=== PATIENT | female | born 1955 | race Hispanic/Latino ===

== ENCOUNTER 2020-11-02 06:49 | Observation (INO) | payer BC ==
[2020-11-02 08:17] LABS: #Basophils 0.1 10x3/uL (0.0-0.2); #Eosinphils 0.2 10x3/uL (0.0-0.5); #Monocytes 0.3 10x3/uL (0.0-1.1); #Neutrophils 2.4 10x3/uL (1.5-8.4); %Basophils 1.1 % (0.0-2.0); %Eosinophils 4.3 % (0.0-6.0); %Lymphocytes 35.4 % (18.0-47.0); %Monocytes 6.3 % (0.0-10.0); %Neutrophils 52.5 % (40.0-75.0); Hemoglobin 12.3 g/dL (12.0-15.5); Mean Corpuscular HGB CONC 33.8 g/dL (32.0-36.0); Mean Corpuscular Hemoglobin 31.9 pg (27.0-33.0); Mean Corpuscular Volume 94.5 fl (81.6-98.3); Mean Platelet Volume 9.9 fl (7.4-10.4); Platelet Count 232 10x3/uL (150-450); RBC Distribution Width 12.6 % (11.5-14.5); Red Blood Cell (RBC) Count 3.85 10x6/uL (3.90-5.03); White Blood Cell (WBC) Count 4.6 10x3/uL (3.5-10.5)
[2020-11-02 08:34] LABS: ALT (SGPT) 23 U/L (8-55); AST (SGOT) 35 U/L (5-34); Albumin 3.7 g/dL (3.4-4.8); Alkaline Phosphatase 69 U/L (40-110); Anion Gap 13 mmol/L (10-20); BUN (Urea Nitrogen) 14 mg/dL (9.8-20.1); Calc. Creatinine Clearance 0 mL/min (70-130); Calcium 8.4 mg/dL (7.8-10.44); Carbon Dioxide 26 mmol/L (23-31); Chloride 105 mmol/L (98-107); Globulin 2.9 g/dL (2.4-3.5); Glucose 103 mg/dL (80-115); Potassium 4.3 mmol/L (3.5-5.1); Protein, Total 6.6 g/dL (5.8-8.1); Sodium 140 mmol/L (136-145)
[2020-11-02] MEDS ORDERED: HYDROcodone/Acetaminophen 5/325 mg Tablet PO PRN (11:02)
[2020-11-02] MEDS ORDERED: Guaifenesin DM 100-10/5 ML UDCUP PO PRN (11:02)
[2020-11-02] MEDS ORDERED: Bisacodyl 10 MG SUPP PR PRN (11:02)
[2020-11-02] MEDS ORDERED: Acetaminophen 325 MG TAB PO PRN (11:02)
[2020-11-02] MEDS ORDERED: Loperamide HCl 2 MG CAP PO PRN (11:02)
[2020-11-02] MEDS ORDERED: Senokot S 8.6-50 MG TAB PO PRN (11:02)
[2020-11-02] MEDS ORDERED: Ondansetron ODT 4 MG TAB PO PRN (11:02)
[2020-11-02] MEDS ORDERED: Zolpidem Tartrate 5 MG TAB PO PRN (11:02)
[2020-11-02] MEDS ORDERED: Calcium Carbonate 500 MG ChewTAB PO PRN (11:02)
[2020-11-02] MEDS ORDERED: Ondansetron PF 4 MG/2 ML Vial IVP PRN (11:02)
[2020-11-02] MEDS ORDERED: Lorazepam 2 MG/ML VIAL SLOW IVP SCH (11:15)
[2020-11-02 11:18] LABS: Troponin I Less than 0.010 ng/mL (< 0.028)
[2020-11-02 14:13] LABS: Troponin I Less than 0.010 ng/mL (< 0.028)
[2020-11-02] MEDS ORDERED: Lorazepam 2 MG/ML VIAL ONE (15:56)
[2020-11-02 18:30] VITALS: BMI 44.1
[2020-11-02] MEDS: Famotidine 20 MG TAB PO SCH (20:19)
[2020-11-03 06:26] LABS: Cardiac Risk 4.9 (Less than 4.5)
[2020-11-03] MEDS: Famotidine 20 MG TAB PO SCH (08:35)
[2020-11-03] MEDS ORDERED: FLU VACC QS2020-21(65YR UP)/PF 240 MCG/0.7 ML SYRINGE IM ONE (09:00)
[2020-11-03 11:31] LABS: Hemoglobin A1c 5.7 % (4.0-6.0)
[2020-11-03 12:08] VITALS: BP 127/79; TEMP 97.4
== END 2020-11-03 15:16 | disposition home or self-care (01) ==
LOC: CSHERS 06:49 → CSHERHOLD 10:20 → CSHTELE 17:23
PROVIDERS: ADMIT Internal Medicine; ATTEND Family Medicine
DX: R55 Syncope and collapse (principal); E11.9 Type 2 diabetes mellitus without complications; E66.01 Morbid (severe) obesity due to excess calories; Z79.899 Other long term (current) drug therapy; Z90.710 Acquired absence of both cervix and uterus; Z90.49 Acquired absence of other specified parts of digestive tract; F32.9 Major depressive disorder, single episode, unspecified; Z87.891 Personal history of nicotine dependence; E78.5 Hyperlipidemia, unspecified; F41.9 Anxiety disorder, unspecified
CPT/HCPCS: 36415; 70450; 70551; 71045; 80053; 80061; 83036; 83880; 84443; 84484; 85025; 90471; 90662; 93005; 93306; 93880; 96374; G0008; G0378; J2060

== ENCOUNTER 2021-12-10 11:00 | Emergency (ER) | payer MEDICARE, BC ==
[2021-12-10 12:35] LABS: #Basophils 0.1 10x3/uL (0.0-0.2); #Eosinphils 0.2 10x3/uL (0.0-0.5); #Monocytes 0.3 10x3/uL (0.0-1.1); #Neutrophils 2.1 10x3/uL (1.5-8.4); %Basophils 1.4 % (0.0-2.0); %Eosinophils 4.6 % (0.0-6.0); %Neutrophils 47.8 % (40.0-75.0); Mean Corpuscular HGB CONC 33.9 g/dL (32.0-36.0); Mean Corpuscular Hemoglobin 31.3 pg (27.0-33.0); Mean Corpuscular Volume 92.1 fl (81.6-98.3); Mean Platelet Volume 9.2 fl (7.4-10.4); Platelet Count 296 10x3/uL (150-450); RBC Distribution Width 12.2 % (11.5-14.5); Red Blood Cell (RBC) Count 4.16 10x6/uL (3.90-5.03); White Blood Cell (WBC) Count 4.4 10x3/uL (3.5-10.5)
[2021-12-10] MEDS ORDERED: Ketorolac Tromethamine 30 MG/ML VIAL ONE (12:39)
[2021-12-10] MEDS ORDERED: Acetaminophen 500 MG TAB ONE (12:39)
[2021-12-10 12:52] LABS: ALT (SGPT) 17 U/L (8-55); AST (SGOT) 31 U/L (5-34); Albumin 4.1 g/dL (3.4-4.8); Alkaline Phosphatase 68 U/L (40-110); Anion Gap 13 mmol/L (10-20); BUN (Urea Nitrogen) 10 mg/dL (9.8-20.1); Bilirubin, Total 1.7 mg/dL (0.2-1.2); Calc. Creatinine Clearance 0 mL/min (70-130); Calcium 9.6 mg/dL (7.8-10.44); Carbon Dioxide 28 mmol/L (23-31); Chloride 102 mmol/L (98-107); Glucose 108 mg/dL (80-115); Potassium 4.6 mmol/L (3.5-5.1); Protein, Total 7.1 g/dL (5.8-8.1); Sodium 138 mmol/L (136-145)
[2021-12-10 14:06] LABS: Bilirubin Neg (Negative); Blood, Urine 25 (Negative); Clarity Cloudy (Clear); Glucose, Urine (Dipstick) Normal (Negative); Ketone, Urine 5 mg/dL (Negative); Leukocyte 500 (Negative); Nitrite Positive (Negative); Protein, Urine (Dipstick) 15 mg/dl (Neg-Trace); Specific Gravity, Urine 1.025 (1.002-1.036); Urobilinogen Normal mg/dL (Less than 2)
[2021-12-10 14:21] LABS: Bacteria/HPF 4+ HPF (None Seen); RBC/HPF 0-3 HPF (0-3); Squamous Epithelial 0-3 HPF (0-3); WBC/HPF Greater Than 50 HPF (0-3)
== END 2021-12-10 14:55 | disposition home or self-care (01) ==
LOC: CSHERS 11:00
DX: N39.0 Urinary tract infection, site not specified (principal); R51.9 Headache, unspecified; R06.02 Shortness of breath
CPT/HCPCS: 71045; 80053; 81003; 81015; 83880; 84484; 85025; 87077; 87086; 87186; 93005; 96374; J1885

== ENCOUNTER 2022-01-06 14:28 | Inpatient (IN) | payer MEDICARE, BC ==
[2022-01-06 15:38] LABS: #Eosinphils 0.2 10x3/uL (0.0-0.5); #Monocytes 0.4 10x3/uL (0.0-1.1); #Neutrophils 6.3 10x3/uL (1.5-8.4); %Basophils 0.5 % (0.0-2.0); %Eosinophils 2.6 % (0.0-6.0); %Lymphocytes 13.5 % (18.0-47.0); %Monocytes 4.5 % (0.0-10.0); %Neutrophils 78.5 % (40.0-75.0); Hemoglobin 12.6 g/dL (12.0-15.5); Mean Corpuscular HGB CONC 36.2 g/dL (32.0-36.0); Mean Corpuscular Hemoglobin 31.4 pg (27.0-33.0); Mean Corpuscular Volume 86.8 fl (81.6-98.3); Mean Platelet Volume 8.8 fl (7.4-10.4); Platelet Count 275 10x3/uL (150-450); RBC Distribution Width 11.7 % (11.5-14.5); Red Blood Cell (RBC) Count 4.01 10x6/uL (3.90-5.03)
[2022-01-06 15:49] LABS: Bilirubin Neg (Negative); Blood, Urine 25 (Negative); Glucose, Urine (Dipstick) Normal (Negative); Ketone, Urine 5 mg/dL (Negative); Leukocyte 500 (Negative); Nitrite Positive (Negative); Protein, Urine (Dipstick) 15 mg/dl (Neg-Trace)
[2022-01-06 15:52] LABS: ALT (SGPT) 18 U/L (8-55); AST (SGOT) 54 U/L (5-34); Albumin 4.1 g/dL (3.4-4.8); Alkaline Phosphatase 68 U/L (40-110); Anion Gap 15 mmol/L (10-20); BUN (Urea Nitrogen) 10 mg/dL (9.8-20.1); Bilirubin, Total 2.9 mg/dL (0.2-1.2); Calc. Creatinine Clearance 0 mL/min (70-130); Calcium 9.2 mg/dL (7.8-10.44); Carbon Dioxide 23 mmol/L (23-31); Chloride 89 mmol/L (98-107); Glucose 101 mg/dL (80-115); Potassium 3.7 mmol/L (3.5-5.1); Protein, Total 7.1 g/dL (5.8-8.1); Sodium 123 mmol/L (136-145)
[2022-01-06] MEDS ORDERED: Ondansetron PF 4 MG/2 ML Vial ONE (15:57)
[2022-01-06 16:07] LABS: Bacteria/HPF 4+ HPF (None Seen); Clarity Turbid (Clear); RBC/HPF 0-3 HPF (0-3)
[2022-01-06] MEDS ORDERED: cefTRIAXone\\ROCEPHIN 1 GM VIAL ONE (16:33)
[2022-01-06] MEDS ORDERED: Acetaminophen 500 MG TAB ONE (16:50)
[2022-01-06] MEDS ORDERED: Magnesium Oxide 400 MG TAB PO SCH (20:00)
[2022-01-06] MEDS ORDERED: Ondansetron ODT 4 MG TAB PO PRN (21:37)
[2022-01-06] MEDS ORDERED: Ondansetron PF 4 MG/2 ML Vial IVP PRN (21:37)
[2022-01-06] MEDS ORDERED: traMADol HCl 50 MG TAB PO PRN (21:45)
[2022-01-06] MEDS ORDERED: Potassium Chloride 20 MEQ in Premix Bag 1 BAG IVPB SCH (22:00)
[2022-01-06 22:05] VITALS: BMI 44.6
[2022-01-06] MEDS: Sodium Chloride 0.9% 1,000 ML IV SCH (22:52)
[2022-01-06 22:54] LABS: Anion Gap 14 mmol/L (10-20); BUN (Urea Nitrogen) 10 mg/dL (9.8-20.1); Calc. Creatinine Clearance 128 mL/min (70-130); Carbon Dioxide 24 mmol/L (23-31); Chloride 89 mmol/L (98-107); Glucose 98 mg/dL (80-115); Magnesium 1.9 mg/dL (1.6-2.6); Potassium 4.2 mmol/L (3.5-5.1); Sodium 123 mmol/L (136-145)
[2022-01-06] MEDS: HYDROcodone/Acetaminophen 5/325 mg Tablet PO PRN (23:33)
[2022-01-07 04:44] LABS: #Eosinphils 0.3 10x3/uL (0.0-0.5); #Monocytes 0.3 10x3/uL (0.0-1.1); %Basophils 0.8 % (0.0-2.0); %Eosinophils 5.3 % (0.0-6.0); %Lymphocytes 27.6 % (18.0-47.0); %Monocytes 6.1 % (0.0-10.0); %Neutrophils 59.8 % (40.0-75.0); Hemoglobin 12.7 g/dL (12.0-15.5); Mean Corpuscular HGB CONC 36.7 g/dL (32.0-36.0); Mean Corpuscular Hemoglobin 31.8 pg (27.0-33.0); Mean Corpuscular Volume 86.7 fl (81.6-98.3); Mean Platelet Volume 8.7 fl (7.4-10.4); Platelet Count 257 10x3/uL (150-450); RBC Distribution Width 11.8 % (11.5-14.5); Red Blood Cell (RBC) Count 3.99 10x6/uL (3.90-5.03); White Blood Cell (WBC) Count 5.1 10x3/uL (3.5-10.5)
[2022-01-07 04:52] LABS: Anion Gap 13 mmol/L (10-20); BUN (Urea Nitrogen) 9 mg/dL (9.8-20.1); Calc. Creatinine Clearance 128 mL/min (70-130); Calcium 9.1 mg/dL (7.8-10.44); Carbon Dioxide 24 mmol/L (23-31); Chloride 92 mmol/L (98-107); Glucose 99 mg/dL (80-115); Sodium 125 mmol/L (136-145)
[2022-01-07 08:43] LABS: ALT (SGPT) 19 U/L (8-55); AST (SGOT) 78 U/L (5-34); Albumin 4.1 g/dL (3.4-4.8); Alkaline Phosphatase 68 U/L (40-110); Bilirubin, Direct 0.8 mg/dL (0.1-0.3); Bilirubin, Total 2.6 mg/dL (0.2-1.2); Protein, Total 7.2 g/dL (5.8-8.1)
[2022-01-07] MEDS ORDERED: traMADol HCl 50 MG TAB PO PRN (08:58)
[2022-01-07] MEDS ORDERED: Furosemide 20 MG TAB PO SCH (09:00)
[2022-01-07] MEDS ORDERED: DULoxetine 30 MG CAP PO SCH (09:00)
[2022-01-07] MEDS: Gabapentin 300 MG CAP PO SCH ×5 (10:49→21:20)
[2022-01-07] MEDS: Aspirin Chewable 81 MG TAB PO SCH (10:49)
[2022-01-07] MEDS: Enoxaparin Sodium 40 MG/0.4 ML SYRINGE SC SCH (10:50)
[2022-01-07 11:47] LABS: Anion Gap 11 mmol/L (10-20); BUN (Urea Nitrogen) 8 mg/dL (9.8-20.1); Calc. Creatinine Clearance 123 mL/min (70-130); Carbon Dioxide 26 mmol/L (23-31); Chloride 94 mmol/L (98-107); Glucose 95 mg/dL (80-115); Potassium 3.8 mmol/L (3.5-5.1); Sodium 127 mmol/L (136-145)
[2022-01-07 14:38] LABS: Amphetamine Not Detected (NotDetected); Barbiturates Screen Not Detected (NotDetected); Benzodiazepine Screen Not Detected (NotDetected); Cocaine Metabolite Screen Not Detected (NotDetected); Methadone Not Detected (NotDetected); Methamphetamine Not Detected (NotDetected); Opiate Screen Not Detected (NotDetected); Oxycodone Screen Not Detected (NotDetected); Phencyclidine (PCP) Not Detected (NotDetected); THC/Cannabinoid Screen Not Detected (NotDetected); Tricyclic Screen Not Detected (NotDetected)
[2022-01-07] MEDS: Sodium Chloride 0.9% 1,000 ML IV SCH ×4 (16:16→21:21)
[2022-01-07 20:16] LABS: Anion Gap 13 mmol/L (10-20); BUN (Urea Nitrogen) 7 mg/dL (9.8-20.1); CK (CPK) 1804 U/L (29-168); Calc. Creatinine Clearance 125 mL/min (70-130); Calcium 8.6 mg/dL (7.8-10.44); Carbon Dioxide 22 mmol/L (23-31); Chloride 97 mmol/L (98-107); Glucose 101 mg/dL (80-115); Potassium 3.6 mmol/L (3.5-5.1); Sodium 128 mmol/L (136-145)
[2022-01-07] MEDS: HYDROcodone/Acetaminophen 5/325 mg Tablet PO PRN (21:20)
[2022-01-08] MEDS: Sodium Chloride 0.9% 1,000 ML IV SCH ×2 (02:22→08:27)
[2022-01-08 04:54] LABS: ALT (SGPT) 18 U/L (8-55); AST (SGOT) 61 U/L (5-34); Albumin 3.5 g/dL (3.4-4.8); Alkaline Phosphatase 67 U/L (40-110); Anion Gap 12 mmol/L (10-20); BUN (Urea Nitrogen) 7 mg/dL (9.8-20.1); Bilirubin, Total 1.6 mg/dL (0.2-1.2); CK (CPK) 1518 U/L (29-168); Calc. Creatinine Clearance 127 mL/min (70-130); Calcium 8.5 mg/dL (7.8-10.44); Carbon Dioxide 25 mmol/L (23-31); Chloride 102 mmol/L (98-107); Glucose 98 mg/dL (80-115); Potassium 4.2 mmol/L (3.5-5.1); Protein, Total 6.5 g/dL (5.8-8.1); Sodium 135 mmol/L (136-145)
[2022-01-08 08:25] VITALS: TEMP 97.3
[2022-01-08] MEDS: Gabapentin 300 MG CAP PO SCH (08:50)
[2022-01-08] MEDS: Aspirin Chewable 81 MG TAB PO SCH (08:50)
[2022-01-08] MEDS: Enoxaparin Sodium 40 MG/0.4 ML SYRINGE SC SCH (08:50)
[2022-01-08] MEDS ORDERED: DULoxetine 30 MG CAP PO SCH (09:00)
[2022-01-08] MEDS ORDERED: Sodium Chloride 0.9% 1,000 ML IV SCH (11:09)
[2022-01-08] MEDS ORDERED: Acetaminophen 325 MG TAB PO PRN (12:20)
[2022-01-08 12:41] VITALS: BP 127/60
== END 2022-01-08 14:38 | disposition home or self-care (01) | DRG 923 ==
LOC: CSHERS 14:28 → INTOOBSV 21:48 → CSHTELE 21:48 → OBSVTOIN 21:49
PROVIDERS: ADMIT Internal Medicine; ATTEND Internal Medicine
DX: T67.5XXA Heat exhaustion, unspecified, initial encounter (principal); E87.1 Hypo-osmolality and hyponatremia; M62.82 Rhabdomyolysis; N39.0 Urinary tract infection, site not specified; Z68.42 Body mass index [BMI] 45.0-49.9, adult; M79.7 Fibromyalgia; G43.909 Migraine, unspecified, not intractable, without status migrainosus; E66.9 Obesity, unspecified; E11.42 Type 2 diabetes mellitus with diabetic polyneuropathy; E86.0 Dehydration; R10.32 Left lower quadrant pain; E86.9 Volume depletion, unspecified; F19.10 Other psychoactive substance abuse, uncomplicated; T50.995A Adverse effect of other drugs, medicaments and biological substances, initial encounter; E80.6 Other disorders of bilirubin metabolism; M19.90 Unspecified osteoarthritis, unspecified site; F10.10 Alcohol abuse, uncomplicated; F32.A Depression, unspecified; Z20.822 Contact with and (suspected) exposure to COVID-19; Z91.09 Other allergy status, other than to drugs and biological substances; Z79.899 Other long term (current) drug therapy; Z79.82 Long term (current) use of aspirin; Z79.51 Long term (current) use of inhaled steroids; Z90.710 Acquired absence of both cervix and uterus; Z98.51 Tubal ligation status; Z90.49 Acquired absence of other specified parts of digestive tract; Z98.890 Other specified postprocedural states; Z87.891 Personal history of nicotine dependence; Z72.89 Other problems related to lifestyle; Z83.3 Family history of diabetes mellitus; Z80.1 Family history of malignant neoplasm of trachea, bronchus and lung
CPT/HCPCS: 36415; 36416; 80048; 80053; 80076; 80306; 81003; 81015; 82550; 83735; 83930; 85025; 87077; 87086; 87186; 93005; 96365; 96375; J0696; J1650; J2405; J3480; J7050; U0003; U0005

== ENCOUNTER 2022-05-19 15:08 | Outpatient (CLI) | payer MEDICARE, BC | END 2022-05-19 15:09 | disposition home or self-care (01) | LOC: CSHCT 15:08 | PROVIDERS: ATTEND Nurse Practitioner Family | DX: M79.7 Fibromyalgia (principal); A49.8 Other bacterial infections of unspecified site; G89.29 Other chronic pain; M47.816 Spondylosis without myelopathy or radiculopathy, lumbar region; M25.78 Osteophyte, vertebrae; M48.061 Spinal stenosis, lumbar region without neurogenic claudication; K80.20 Calculus of gallbladder without cholecystitis without obstruction; K57.30 Diverticulosis of large intestine without perforation or abscess without bleeding | CPT/HCPCS: 72131 ==

== ENCOUNTER 2024-02-18 08:55 | Emergency (ER) | payer MEDICARE ==
[2024-02-18] MEDS ORDERED: CEFAZOLIN 2 GM VIAL ONE (09:16)
[2024-02-18] MEDS ORDERED: fentaNYL 50 mcg/mL 1 mL Vial ONE (09:16)
[2024-02-18] MEDS ORDERED: Ondansetron PF 4 MG/2 ML Vial ONE ×2 (09:16→11:41)
[2024-02-18 09:20] LABS: #Basophils 0.04 10x3/uL (0.0-0.2); #Eosinphils 0.19 10x3/uL (0.0-0.5); #Monocytes 0.14 10x3/uL (0.0-1.1); #Neutrophils 1.89 10x3/uL (1.5-8.4); %Lymphocytes 40.2 % (18.0-47.0); %Monocytes 3.7 % (0.0-10.0); %Neutrophils 49.6 % (40.0-75.0); Hematocrit 36.2 % (34.9-44.5); Mean Corpuscular HGB CONC 35.9 g/dL (32.0-36.0); Mean Corpuscular Hemoglobin 32.3 pg (27.0-33.0); Mean Platelet Volume 9.3 fL (7.4-10.4); Platelet Count 315 10x3/uL (150-450); RBC Distribution Width 12.3 % (11.5-14.5); Red Blood Cell (RBC) Count 4.02 10x6/uL (3.90-5.03); White Blood Cell (WBC) Count 3.8 10x3/uL (3.5-10.5)
[2024-02-18 09:36] LABS: ALT (SGPT) 12 U/L (8-55); AST (SGOT) 34 U/L (5-34); Albumin 4.1 g/dL (3.4-4.8); Alkaline Phosphatase 75 U/L (40-110); Anion Gap 18 mmol/L (10-20); BUN (Urea Nitrogen) 9 mg/dL (9.8-20.1); Bilirubin, Total 1.8 mg/dL (0.2-1.2); Calc. Creatinine Clearance 0 mL/min (70-130); Carbon Dioxide 19 mmol/L (23-31); Chloride 103 mmol/L (98-107); Estimated GFR 52; Globulin 3.7 g/dL (2.4-3.5); Glucose 118 mg/dL (80-115); Protein, Total 7.8 g/dL (5.8-8.1); Sodium 137 mmol/L (136-145)
[2024-02-18] MEDS ORDERED: Potassium Chloride 20 MEQ TAB ONE (10:02)
[2024-02-18] MEDS ORDERED: Iopamidol 370 76% 100 ML VIAL ONE (10:33)
[2024-02-18] MEDS ORDERED: Morphine 4 MG/ML VIAL ONE (11:41)
[2024-02-18 12:52] LABS: Troponin I Less than 0.010 ng/mL (< 0.028)
[2024-02-18] MEDS ORDERED: Gentamicin Sulfate 300 MG, Admixture Fee 1 EACH in Sodium Chloride 0.9% 100 ML IVPB SCH (13:00)
== END 2024-02-18 13:45 | disposition short-term general hospital (02) ==
LOC: CSHERS 08:55
DX: R55 Syncope and collapse (principal); S81.001D Unspecified open wound, right knee, subsequent encounter; I95.9 Hypotension, unspecified; E11.9 Type 2 diabetes mellitus without complications; W19.XXXD Unspecified fall, subsequent encounter
CPT/HCPCS: 36415; 70450; 71045; 71275; 72128; 72131; 80053; 83605; 83690; 83880; 84484; 85025; 85379; 87040; 93005; J1580; J2270; J2405; J3010; J3490